=== PATIENT | female | born 1990 | race Caucasian/White ===

== ENCOUNTER 2019-02-19 16:16 | Emergency (ER) | payer OTHER ==
[2019-02-19] MEDS ORDERED: Sodium Chloride 0.9% 2.5 ML Syringe FLUSH PRN (16:47)
[2019-02-19] MEDS ORDERED: Sodium Chloride 0.9% 1,000 ML IV ONE (16:47)
[2019-02-19] MEDS ORDERED: Sodium Chloride 0.9% 10 ML Syringe FLUSH PRN (16:47)
--- NOTE | 2019-02-19 16:55 | EDM.PDOC ---
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 She states she talked to her OB, Dr. Berger, at [facility] who advised she come to the ED for fluids. Patient states that she has had nausea and vomiting since the beginning of her and has tried zofran and another recent PO medication without improvement. She denies fevers, chills, abdominal pain, vaginal bleeding or discharge. Review of systems: As per history of present illness and below otherwise all systems reviewed and negative. Past medical history: As per history of present illness and as reviewed below otherwise noncontributory. Surgical history: As per history of present illness and as reviewed below otherwise noncontributory. Social history: No reported history of drug or alcohol abuse. Family history: As per history of present illness and as reviewed below otherwise noncontributory. Physical exam: General: Patient sitting comfortably in no acute distress and nontoxic appearing HEENT: Atraumatic, normocephalic, pupils reactive, negative for conjunctival pallor or scleral icterus, mucous membranes moist, throat clear, neck supple, nontender, trachea midline. No meningeal signs. Lungs: Clear to auscultation, breath sounds equal bilaterally, chest nontender. Heart: S1S2, regular, negative for clicks, rubs, or overt murmur. Abdomen: Soft, nondistended, nontender. Negative for masses or hepatosplenomegaly. Negative for costovertebral tenderness. No rigidity, rebound , guarding. Pelvis: Stable nontender. Genitourinary: Deferred. Rectal: Deferred. Extremities: Atraumatic, negative for cords or calf pain. Neurovascular unremarkable. Neuro: Awake, alert, oriented. Cranial nerves II through XII unremarkable. Cerebellum unremarkable. Motor and sensory unremarkable throughout. Exam nonfocal. Notes: Diagnostics: CBC, CMP Therapeutics: 1L NS IV Prescriptions: Phenergan suppository Impression: Vomiting in Plan: Drink plenty of small sips of fluids and bland food as tolerated Use rectal phenergan as needed as discussed Follow up with personnel and payroll technician Return to ED as needed as discussed Definitive disposition and diagnosis as appropriate pending reevaluation and review of above. 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 ED EXAM, GI/ABD - Physical Exam Exam: See Below (see dictation) Course - Vital Signs Last Recorded V/S: Last Vital Signs Temp 97.7 F 02/19/19 18:15 Pulse 70 02/19/19 18:15 Resp 18 02/19/19 18:15 BP 109/76 02/19/19 18:15 Pulse Ox 98 02/19/19 18:15 - Orders/Labs/Meds Orders: Active Orders 24 hr Category Date Time Status Saline Lock Insert [OM.PC] Stat Oth 02/19/19 16:47 Ordered Labs: Laboratory Tests 02/19/19 02/19/19 Range/Units 17:00 17:00 WBC 8.22 (4.0-11.0) K/uL RBC 4.43 (4.30-5.90) M/uL Hgb 12.9 (12.0-16.0) g/dL Hct 38.2 (36.0-46.0) % MCV 86.2 (80.0-98.0) fL MCH 29.1 (27.0-32.0) pg MCHC 33.8 (31.0-37.0) g/dL RDW Std Deviation 43.1 (28.0-62.0) fl RDW Coeff of Nita 14 (11.0-15.0) % Plt Count 291 (150-400) K/uL MPV 9.50 (7.40-12.00) fL Neut % (Auto) 69.2 (48.0-80.0) % Lymph % (Auto) 19.8 (16.0-40.0) % Caroline % (Auto) 8.2 (0.0-15.0) % Eos % (Auto) 2.6 (0.0-7.0) % Baso % (Auto) 0.2 (0.0-1.5) % Neut # (Auto) 5.7 (1.4-5.7) K/uL Lymph # (Auto) 1.6 (0.6-2.4) K/uL Caroline # (Auto) 0.7 (0.0-0.8) K/uL Eos # (Auto) 0.2 (0.0-0.7) K/uL Baso # (Auto) 0.0 (0.0-0.1) K/uL Nucleated RBC % 0.0 /100WBC Nucleated RBCs # 0 K/uL Sodium 138 (136-145) mmol/L Potassium 3.1 L (3.5-5.1) mmol/L Chloride 103 (98-107) mmol/L Carbon Dioxide 22.2 (21.0-32.0) mmol/L BUN 3 L (7.0-18.0) mg/dL Creatinine 0.6 (0.6-1.0) mg/dL Est Cr Clr Drug Dosing 143.33 mL/min Estimated GFR (MDRD) > 60.0 ml/min Glucose 70 L (74-106) mg/dL Calcium 8.8 (8.5-10.1) mg/dL Total Bilirubin 0.4 (0.2-1.0) mg/dL AST 18 (15-37) IU/L ALT 19 (14-63) IU/L Alkaline Phosphatase 63 (46-116) U/L Total Protein 6.8 (6.4-8.2) g/dL Albumin 3.1 L (3.4-5.0) g/dL Globulin 3.7 (2.6-4.0) g/dL Albumin/Globulin Ratio 0.8 L (0.9-1.6) Meds: Medications Discontinued Medications Generic Name Dose Route Start Last Admin Trade Name Freq PRN Reason Stop Dose Admin Sodium Chloride 1,000 mls @ 999 mls/hr 02/19/19 16:47 02/19/19 17:07 Normal Saline IV 02/19/19 17:47 999 mls/hr STAT ONE Administration Sodium Chloride 10 ml 02/19/19 16:47 02/19/19 17:07 Saline Flush FLUSH 10 ml ASDIRECTED PRN Administration Keep Vein Open Sodium Chloride 2.5 ml 02/19/19 16:47 02/19/19 17:07 Saline Flush FLUSH 2.5 ml ASDIRECTED PRN Administration Keep Vein Open Departure - Departure Time of Disposition: 23:04 Disposition: Home, Self-Care 01 Condition: Good Clinical Impression: Vomiting during - Discharge Information Prescriptions: Promethazine HCl [Phenergan] 12.5 mg RC Q6H #10 supp.rect Instructions: Nausea and Vomiting, Adult, [id number] Referrals: Kathleen Berger MD [Primary Care Provider] - Forms: ED Department Discharge Additional Instructions: The following information is given to patients seen in the emergency department who are being discharged to home. This information is to outline your options for follow-up care. We provide all patients seen in our emergency department with a follow-up referral. The need for follow-up, as well as the timing and circumstances, are variable depending upon the specifics of your emergency department visit. If you don't have a primary care physician on staff, we will provide you with a referral. We always advise you to contact your personal physician following an emergency department visit to inform them of the circumstance of the visit and for follow-up with them and/or the need for any referrals to a consulting specialist. The emergency department will also refer you to a specialist when appropriate. This referral assures that you have the opportunity for follow-up care with a specialist. All of these measure are taken in an effort to provide you with optimal care, which includes your follow-up. Under all circumstances we always encourage you to contact your private physician who remains a resource for coordinating your care. When calling for follow-up care, please make the office aware that this follow-up is from your recent emergency room visit. If for any reason you are refused follow-up, please contact the [facility] Emergency Department at and asked to speak to the emergency department charge nurse. [facility] [address] [place] [id number] Drink plenty of small sips of fluids and bland food as tolerated Use rectal phenergan as needed as discussed Follow up with personnel and payroll technician Return to ED as needed as discussed - My Orders Last 24 Hours: My Active Orders 02/19/19 16:47 Saline Lock Insert [OM.PC] Stat - Assessment/Plan Last 24 Hours: My Active Orders 02/19/19 16:47 Saline Lock Insert [OM.PC] Stat
[2019-02-19 17:34] LABS: BLOOD UREA NITROGEN,BUN 3 mg/dL (7.0-18.0); CARBON DIOXIDE,CO2 22.2 mmol/L (21.0-32.0); CHLORIDE,CL 103 mmol/L (98-107); GLUCOSE RANDOM 70 mg/dL (74-106); POTASSIUM,K 3.1 mmol/L (3.5-5.1); SODIUM,NA 138 mmol/L (136-145)
== END 2019-02-19 18:23 | disposition home or self-care (01) ==
LOC: MW.ED 16:16
DX: O21.9 Vomiting of pregnancy, unspecified (principal); Z3A.16 16 weeks gestation of pregnancy
CPT/HCPCS: 80053; 85025; 96360; 99284; J7040

== ENCOUNTER 2019-07-30 12:17 | Inpatient (IN) | payer OTHER ==
[2019-07-30] MEDS ORDERED: hydrOXYzine Pamoate 25 MG Cap PO ONE (14:53)
[2019-07-30] MEDS ORDERED: Tranexamic Acid 1,000 MG in Sodium Chloride 0.9% 100 ML IV PRN (16:02)
[2019-07-30] MEDS ORDERED: Sodium Chloride 0.9% 10 ML Syringe FLUSH PRN (16:02)
[2019-07-30] MEDS ORDERED: Sodium Chloride 0.9% 10 ML SDV IV PRN (16:02)
[2019-07-30] MEDS ORDERED: Methylergonovine 0.2 MG/1 ML Amp IM PRN (16:02)
[2019-07-30] MEDS ORDERED: Carboprost Tromethamine 250 MCG/1 ML Amp IM PRN (16:02)
[2019-07-30] MEDS ORDERED: Butorphanol 1 MG/ML SDV IVPUSH PRN (16:02)
[2019-07-30] MEDS ORDERED: Sodium Chloride 0.9% 2.5 ML Syringe FLUSH PRN (16:02)
[2019-07-30] MEDS ORDERED: Misoprostol 200 MCG Tab PO PRN (16:02)
[2019-07-30] MEDS ORDERED: Nalbuphine 10 MG/1 ML Vial IVPUSH PRN (16:02)
[2019-07-30] MEDS ORDERED: Water For Irrigation,Sterile 1,000 ML Container IRR PRN (16:02)
[2019-07-30] MEDS ORDERED: Lidocaine 1% 50 ML MDV INJECT PRN (16:02)
[2019-07-30] MEDS ORDERED: Oxytocin/0.9 % Sodium Chloride 30 UNIT/500 ML BAG IV SCH ×2 (16:15→20:15)
[2019-07-30] MEDS: Lactated Ringers 1,000 ML IV SCH ×2 (16:54→18:26)
[2019-07-30] MEDS ORDERED: Bupivicaine/fentaNYL/NS 250 ML ONE (17:30)
--- NOTE | 2019-07-30 18:23 | PCM.PREANE ---
Preanesthetic Assessment - Procedure Proposed Procedure: continuous labor epidura - Anesthesia/Transfusion/Family Hx Anesthesia History: Prior Anesthesia Without Reaction Family History of Anesthesia Reaction: No Transfusion History: Unknown - Review of Systems General: No Symptoms Pulmonary: No Symptoms Cardiovascular: No Symptoms, Other (METS>4) Gastrointestinal: Other (hx GERD with ) Neurological: No Symptoms Other: Reports: Anxiety - Physical Assessment NPO Status Date: 07/30/19 (greater than 4 hours) Height: 5 ft 8 in Weight: 99.337 kg ASA Class: 2 Airway Class: Mallampati = 2 Dentition: Reports: Normal Dentition Lungs: Clear to Auscultation Cardiovascular: Regular Rate - Lab Values: Laboratory Last Values WBC 12.00 K/uL (4.0-11.0) H 07/30/19 16:21 RBC 4.24 M/uL (4.30-5.90) L 07/30/19 16:21 Hgb 11.5 g/dL (12.0-16.0) L 07/30/19 16:21 Hct 36.3 % (36.0-46.0) 07/30/19 16:21 MCV 85.6 fL (80.0-98.0) 07/30/19 16:21 MCH 27.1 pg (27.0-32.0) 07/30/19 16:21 MCHC 31.7 g/dL (31.0-37.0) 07/30/19 16:21 RDW Std Deviation 47.4 fl (28.0-62.0) 07/30/19 16:21 RDW Coeff of Nita 15 % (11.0-15.0) 07/30/19 16:21 Plt Count 299 K/uL (150-400) 07/30/19 16:21 MPV 10.50 fL (7.40-12.00) 07/30/19 16:21 Nucleated RBC % 0.0 /100WBC 07/30/19 16:21 Nucleated RBCs # 0 K/uL 07/30/19 16:21 Blood Type AB POSITIVE 07/30/19 16:21 Antibody Screen NEGATIVE 07/30/19 16:21 - Allergies Allergies/Adverse Reactions: Allergies Allergy/AdvReac Type Severity Reaction Status Date / Time No Known Allergies Allergy Verified 02/19/19 16:39 - Acknowledgements Anesthesia Type Planned: Epidural Pt an Appropriate Candidate for the Planned Anesthesia: Yes Alternatives and Risks of Anesthesia Discussed w Pt/Guardian: Yes Pt/Guardian Understands and Agrees with Anesthesia Plan: Yes PreAnesthesia Questionnaire 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: - Infectious Disease History Infectious Disease History: Reports: None - HOME MEDS Home Medications: Home Meds Calcium Carbonate [Tums Extra Strength] 750 mg PO DAILY PRN 07/30/19 [History] - CURRENT (IN HOUSE) MEDS Current Meds: Current Medications Butorphanol Tartrate (Stadol) 1 mg IVPUSH Q1H PRN PRN Reason: Pain Last Admin: 07/30/19 16:54 Dose: 1 mg Carboprost Tromethamine (Hemabate Ds) 250 mcg IM ASDIRECTED PRN PRN Reason: Post Hemorrhage Tranexamic Acid 1,000 mg/ (Sodium Chloride) 110 mls @ 660 mls/hr IV ONETIME PRN PRN Reason: Bleeding Lactated Ringer's (Ringers, Lactated) 1,000 mls @ 150 mls/hr IV ASDIRECTED SUNSHINE Last Admin: 07/30/19 16:54 Dose: 150 mls/hr Oxytocin/Sodium Chloride (Oxytocin 30 Unit/500 Ml-Ns) 30 unit in 500 mls @ 999 mls/hr IV TITRATE SUNSHINE Lidocaine HCl (Xylocaine 1%) 50 ml INJECT ONETIME PRN PRN Reason: Laceration repair Methylergonovine Maleate (Methergine) 0.2 mg IM ASDIRECTED PRN PRN Reason: Post Hemorrhage Misoprostol (Cytotec) 200 mcg PO ONETIME PRN PRN Reason: Post Hemorrhage Nalbuphine HCl (Nubain) 10 mg IVPUSH Q1H PRN PRN Reason: Pain (severe 7-10) Sodium Chloride (Saline Flush) 10 ml FLUSH ASDIRECTED PRN PRN Reason: Keep Vein Open Sodium Chloride (Saline Flush) 2.5 ml FLUSH ASDIRECTED PRN PRN Reason: Keep Vein Open Sodium Chloride (Normal Saline) 10 ml IV ASDIRECTED PRN PRN Reason: IV Use Sterile Water (Sterile Water For Irrigation) 1,000 ml IRR ASDIRECTED PRN PRN Reason: delivery Discontinued Medications Hydroxyzine Pamoate (Vistaril) 25 mg PO ONETIME ONE Stop: 07/30/19 14:54 Last Admin: 07/30/19 15:12 Dose: 25 mg Fentanyl/Bupivacaine HCl (Fentanyl/Bupivacaine/Ns 2 Mcg-0.125% 250 Ml) Confirm Administered Dose 250 mls @ as directed .ROUTE .[facility]-MED ONE Stop: 07/30/19 17:31
[2019-07-30] MEDS ORDERED: Lidocaine 2% 5 ML SDV ONE ×2 (21:04→23:35)
[2019-07-30] MEDS ORDERED: ePHEDrine 50 MG/ML SDV ONE (21:13)
[2019-07-31] MEDS ORDERED: Acetaminophen 500 MG Tab PO PRN (01:10)
[2019-07-31] MEDS ORDERED: Ibuprofen 400 MG Tab PO PRN (01:10)
[2019-07-31] MEDS ORDERED: Lanolin 100% Cream 7 GM Tube TOP PRN (01:10)
[2019-07-31] MEDS ORDERED: Bisacodyl 10 MG Supp RECTAL PRN (01:10)
[2019-07-31] MEDS ORDERED: Benzocaine/Menthol 20%-0.5% Spray 78 GM Cannister TOP PRN (01:10)
[2019-07-31] MEDS ORDERED: Witch Hazel Medicated Pads 40/Jar TOP PRN (01:10)
[2019-07-31] MEDS: Ibuprofen 800 MG Tab PO PRN ×3 (03:23→17:17)
[2019-07-31] MEDS: Docusate Sodium 100 MG Cap PO PRN ×3 (03:46→20:39)
--- NOTE | 2019-07-31 05:21 | OR ---
SURGEON: Yassine Ayala MD DATE OF PROCEDURE: 07/31/2019 INDICATION FOR PROCEDURE: A 28-year-old G1, P0 at 38 weeks and 5 days initially presented with contractions and spontaneous rupture of membranes. GBS was negative. She had uncomplicated . She received an epidural for pain. Had category 1 tracing. She did not make further progress on her own and was given Pitocin for augmentation. She progressed to fully dilated and +1 station, and proceeded to push with contractions. PREOPERATIVE DIAGNOSIS: Don intrauterine at 38 weeks and 5 days. POSTOPERATIVE DIAGNOSIS: Don intrauterine at 38 weeks and 5 days. PROCEDURE PERFORMED: Normal spontaneous vaginal delivery. ANESTHESIOLOGIST: Dr. Soares. ANESTHESIA: Epidural anesthesia. ESTIMATED BLOOD LOSS: 200 mL. FINDINGS: Viable female , scores of 8 and 9, weight of 7 pounds and 5.5 ounces. DESCRIPTION OF THE PROCEDURE: The patient pushed for approximately 30 minutes with good descent, head delivered in occiput anterior position over intact perineum, restituted LOT. Tight nuchal cord x1 was noted. Anterior shoulder delivered easily followed by posterior shoulder and remaining body. The nuchal cord was reduced after delivery. The baby was placed on maternal chest and evaluated by awaiting nursery staff. The baby was pink, crying, and moving all extremities after delivery. The cord was clamped and cut after 60 seconds and no longer pulsating. Umbilical cord gases were obtained. Placenta was removed with gentle traction on the umbilical cord, examined and found to be intact with 3-vessel cord. Perineum was examined and superficial periurethral lacerations were noted, but was hemostatic. Fundal massage was performed and the uterus was firm and at the umbilicus. Bleeding was minimal. The patient was cleaned. She tolerated the procedure well, was given care instructions. KERI / REEMA /[id number] MTDDavida
[2019-07-31] MEDS: Acetaminophen 500 MG Tab PO PRN ×2 (06:36→10:50)
[2019-07-31] MEDS: Acetaminophen/oxyCODONE 325-5 MG Tab PO PRN ×2 (13:58→20:39)
--- NOTE | 2019-07-31 19:14 | PCM48HPAN ---
Post Anesthesia Note - EVALUATION WITHIN 48HRS OF ANESTHETIC Vital Signs in Normal Range: Yes Patient Participated in Evaluation: Yes Respiratory Function Stable: Yes Airway Patent: Yes Cardiovascular Function Stable: Yes Hydration Status Stable: Yes Pain Control Satisfactory: Yes Nausea and Vomiting Control Satisfactory: Yes Mental Status Recovered: Yes Vital Signs: Last Vital Signs Temp 36.0 C L 07/31/19 16:06 Pulse 71 07/31/19 16:06 Resp 18 07/31/19 16:06 BP 113/64 07/31/19 16:06 Pulse Ox 97 07/31/19 16:06 - COMMENTS/OBSERVATIONS Free Text/Narrative:: No anesthesia problems
[2019-08-01] MEDS: Ibuprofen 800 MG Tab PO PRN ×2 (00:41→11:16)
[2019-08-01] MEDS: Acetaminophen/oxyCODONE 325-5 MG Tab PO PRN (06:18)
--- NOTE | 2019-08-01 10:42 | PCM.PNPP ---
- General Info Date of Service: 08/01/19 Subjective Update: 28yo P1 s/p PPD1 Functional Status: Reports: Pain Controlled, Tolerating Diet, Ambulating, Urinating - Review of Systems General: Reports: No Symptoms HEENT: Reports: No Symptoms Pulmonary: Reports: No Symptoms Cardiovascular: Reports: No Symptoms Gastrointestinal: Reports: No Symptoms Genitourinary: Reports: No Symptoms Musculoskeletal: Reports: No Symptoms Skin: Reports: No Symptoms Neurological: Reports: No Symptoms Psychiatric: Reports: No Symptoms - General Info Date of Service: 08/01/19 - Patient Data Vital Signs - Most Recent: Last Vital Signs Temp 36.1 C 08/01/19 09:00 Pulse 69 08/01/19 09:00 Resp 18 08/01/19 09:00 BP 111/72 08/01/19 09:00 Pulse Ox 97 08/01/19 09:00 Weight - Most Recent: 99.337 kg Lab Results - Last 24 Hours: Laboratory Results - last 24 hr 08/01/19 Range/Units 06:05 Hgb 10.8 L (12.0-16.0) g/dL Hct 35.0 L (36.0-46.0) % Med Orders - Current: Current Medications Acetaminophen (Tylenol Extra Strength) 500 mg PO Q4H PRN PRN Reason: Pain Acetaminophen (Tylenol Extra Strength) 1,000 mg PO Q4H PRN PRN Reason: Pain Last Admin: 07/31/19 10:50 Dose: 1,000 mg Benzocaine/Menthol (Dermoplast Pain Relief 20%-0.5% Pillow) 78 gm TOP ASDIRECTED PRN PRN Reason: Perineal Comfort Measure Last Admin: 07/31/19 03:44 Dose: 1 spray Bisacodyl (Dulcolax) 10 mg RECTAL ONETIME PRN PRN Reason: Constipation Butorphanol Tartrate (Stadol) 1 mg IVPUSH Q1H PRN PRN Reason: Pain Last Admin: 07/30/19 16:54 Dose: 1 mg Carboprost Tromethamine (Hemabate Ds) 250 mcg IM ASDIRECTED PRN PRN Reason: Post Hemorrhage Docusate Sodium (Colace) 100 mg PO BID PRN PRN Reason: Constipation Last Admin: 07/31/19 20:39 Dose: 100 mg Emollient Ointment (Lansinoh Hpa) 0 gm TOP ASDIRECTED PRN PRN Reason: Sore Nipples Tranexamic Acid 1,000 mg/ (Sodium Chloride) 110 mls @ 660 mls/hr IV ONETIME PRN PRN Reason: Bleeding Lactated Ringer's (Ringers, Lactated) 1,000 mls @ 150 mls/hr IV ASDIRECTED SUNSHINE Last Admin: 07/30/19 18:26 Dose: 999 mls/hr Oxytocin/Sodium Chloride (Oxytocin 30 Unit/500 Ml-Ns) 30 unit in 500 mls @ 999 mls/hr IV TITRATE SUNSHINE Oxytocin/Sodium Chloride (Oxytocin 30 Unit/500 Ml-Ns) 30 unit in 500 mls @ 2 mls/hr IV TITRATE SUNSHINE; Protocol Last Titration: 07/30/19 22:50 Dose: 6 munits/min, 6 mls/hr Ibuprofen (Motrin) 400 mg PO Q4H PRN PRN Reason: Pain Ibuprofen (Motrin) 800 mg PO Q6H PRN PRN Reason: Pain Last Admin: 08/01/19 00:41 Dose: 800 mg Lidocaine HCl (Xylocaine 1%) 50 ml INJECT ONETIME PRN PRN Reason: Laceration repair Methylergonovine Maleate (Methergine) 0.2 mg IM ASDIRECTED PRN PRN Reason: Post Hemorrhage Misoprostol (Cytotec) 200 mcg PO ONETIME PRN PRN Reason: Post Hemorrhage Nalbuphine HCl (Nubain) 10 mg IVPUSH Q1H PRN PRN Reason: Pain (severe 7-10) Oxycodone/Acetaminophen (Percocet 325-5 Mg) 1 tab PO Q6H PRN PRN Reason: Pain Last Admin: 08/01/19 06:18 Dose: 1 tab Sodium Chloride (Saline Flush) 10 ml FLUSH ASDIRECTED PRN PRN Reason: Keep Vein Open Sodium Chloride (Saline Flush) 2.5 ml FLUSH ASDIRECTED PRN PRN Reason: Keep Vein Open Sodium Chloride (Normal Saline) 10 ml IV ASDIRECTED PRN PRN Reason: IV Use Sterile Water (Sterile Water For Irrigation) 1,000 ml IRR ASDIRECTED PRN PRN Reason: delivery Witch Soraya (Tucks) 1 pad TOP ASDIRECTED PRN PRN Reason: comfort care Last Admin: 07/31/19 03:46 Dose: 1 pad Discontinued Medications Ephedrine Sulfate (Ephedrine Sulfate) Confirm Administered Dose 50 mg .ROUTE .STK-MED ONE Stop: 07/30/19 21:14 Last Admin: 07/31/19 06:43 Dose: Not Given Hydroxyzine Pamoate (Vistaril) 25 mg PO ONETIME ONE Stop: 07/30/19 14:54 Last Admin: 07/30/19 15:12 Dose: 25 mg Fentanyl/Bupivacaine HCl (Fentanyl/Bupivacaine/Ns 2 Mcg-0.125% 250 Ml) Confirm Administered Dose 250 mls @ as directed .ROUTE .STK-MED ONE Stop: 07/30/19 17:31 Last Admin: 07/31/19 06:42 Dose: Not Given Lidocaine (Xylocaine-Mpf 2%) Confirm Administered Dose 5 ml .ROUTE .STK-MED ONE Stop: 07/30/19 21:05 Last Admin: 07/31/19 06:43 Dose: Not Given Lidocaine (Xylocaine-Mpf 2%) Confirm Administered Dose 5 ml .ROUTE .STK-MED ONE Stop: 07/30/19 23:36 Last Admin: 07/31/19 06:43 Dose: Not Given - Infant Interaction Support Person: - Recovery Exam Fundal Tone: Firm Fundal Level: 1 Fingerbreadths Below Umbilicus Fundal Placement: Midline Lochia Amount: Scant Lochia Color: Rubra/Red Perineum Description: Intact, Minimal Bruising/Swelling Episiotomy/Laceration: None Bladder Status: Voiding Urinary Elimination: Voided - Exam General: Alert HEENT: Pupils Equal Neck: Supple Lungs: Clear to Auscultation Cardiovascular: Regular Rate, Regular Rhythm GI/Abdominal Exam: Normal Bowel Sounds Extremities: Normal Inspection Neurological: No New Focal Deficit Psy/Mental Status: Alert - Problem List & Annotations (1) Vaginal delivery SNOMED Code(s): 495118906 Code(s): O80 - ENCOUNTER FOR FULL-TERM UNCOMPLICATED DELIVERY Status: Acute Current Visit: Yes - Problem List Review Problem List Initiated/Reviewed/Updated: Yes - Assessment Assessment:: 28yo P1 s/p PPD1 ,Normal lochia , - Plan Plan:: Discharge home
== END 2019-08-01 12:10 | disposition home or self-care (01) | DRG 807 ==
LOC: MW.OBCHECK 12:17 → MW.OB 12:46 → MW.OBCHECK 16:00 → INTOOBSV 07-31 00:52 → OBSVTOIN 07-31 00:52 → MW.OB 07-31 03:00 → UNDODISIN 08-01 12:10
PROVIDERS: ADMIT Obstetrics & Gynecology; ATTEND Obstetrics & Gynecology
PROC: 10E0XZZ Delivery of Products of Conception, External Approach (ICD-10-PCS; principal; 2019-07-31)
PROC: 3E0R3BZ Introduction of Anesthetic Agent into Spinal Canal, Percutaneous Approach (ICD-10-PCS; 2019-07-31)
DX: O69.1XX0 Labor and delivery complicated by cord around neck, with compression, not applicable or unspecified (principal); Z37.0 Single live birth; Z3A.38 38 weeks gestation of pregnancy; O71.82 Other specified trauma to perineum and vulva; Z79.899 Other long term (current) drug therapy
CPT/HCPCS: 01967; 36415; 51702; 59025; 59409; 85014; 85018; 85027; 86592; 86593; 86850; 86900; 86901; A9270-GY; J0595; J2590; J7120